=== PATIENT | male | born 1955 | race Hispanic/Latino ===

== ENCOUNTER 2021-06-19 09:04 | Outpatient (CLI) | payer MEDICARE ==
--- NOTE | 2021-06-19 13:02 | Nuclear Medicine Report ---
NUCLEAR MEDICINE BONE SCAN, WHOLE BODY INDICATION / CLINICAL INFORMATION: C61. Initial bone scan status post diagnosis of prostate cancer. TECHNIQUE: 26.0 mCi of Tc-99m MDP were injected IV. Images were obtained of the whole body. Additiona l anterior-posterior planar images of the arms were obtained. COMPARISON: No relevant prior imaging study available. FINDINGS: BONES: No osseous lesion or other abnormality. JOINTS: Degenerative activity. Increased activity at the great toe MTPs bilaterally could reflect seq uelae of gout or other inflammatory arthropathy. SOFT TISSUES: No significant abnormality. KIDNEYS: No significant abnormality. ADDITIONAL FINDINGS: None. IMPRESSION: 1. No findings to suggest osseous metastatic disease. Signer Name: Antony Gentile II, MD Signed: 06/19/2021 12:58 PM Workstation Name: [id number]
== END 2021-06-19 09:05 | disposition home or self-care (01) ==
LOC: NM 09:04
PROVIDERS: ATTEND Urology
DX: C61 Malignant neoplasm of prostate (principal); M47.819 Spondylosis without myelopathy or radiculopathy, site unspecified
CPT/HCPCS: 78306; A9503